=== PATIENT | female | born 1985 | race Caucasian/White ===

== ENCOUNTER 2021-05-17 23:31 | Inpatient (IN) ==
[2021-05-18] MEDS ORDERED: OXYTOCIN 30 UNITS/500 ML BAG IV PRN ×2 (02:20→10:14)
[2021-05-18] MEDS: LACTATED RINGER'S 1,000 ML IV PRN ×2 (02:30→04:16)
[2021-05-18] MEDS ORDERED: ePHEDrine sulfate 50 MG/ML AMP ONE (02:31)
[2021-05-18] MEDS ORDERED: SODIUM CHLORIDE 0.9% INJ 10 ML VIAL ONE (02:31)
[2021-05-18] MEDS ORDERED: BUPIVACAINE 0.25% 30 ML VIAL ONE (02:32)
[2021-05-18] MEDS ORDERED: fentaNYL citrate 100 MCG/2 ML VIAL ONE (02:32)
[2021-05-18] MEDS ORDERED: fentaNYL 2MCG/ML ROPIVACAINE 1.25MG/ML 100 ML BAG EPI ONE (02:32)
[2021-05-18 02:51] LABS: Hematocrit (blood only) 34.9 % (37-47); Hemoglobin 11.9 g/dL (12.0-16.0); Mean Corpuscular Hemoglobin 30.8 pg (25-34); Mean Corpuscular Hgb Conc 34.1 g/dL (32-36); Mean Corpuscular Volume 90.4 fL (80-100); Mean Platelet Volume 11.3 fL (7.4-10.4); Platelet Count 256 K/uL (130-400); RDW Standard Deviation 45.9 fL (36.4-46.3); Red Blood Count 3.86 M/uL (4.2-5.4); White Blood Count 16.97 K/uL (4.8-10.8)
--- NOTE | 2021-05-18 02:56 | Anesthesiology Consultation ---
Date of Service May 18, 2021 Assessment & Plan (1) Encounter for pre-operative examination: Chart Review Chart Review: Acceptable Risk for Surgery and Patient NOT seen in Pre Admission Testing Consults Requested none ASA ASA2 Proposed Anesthesia Anesthesia Type: Labor Epidural Risk / Benefits Reviewed With: PT / POA / Parent / Guardian, Accepts Plan and Informed Consent Obtained History Height/Weight Height: 5 ft 1 in Weight: 86.183 kg Allergies Allergy/AdvReac Type Severity Reaction Status Date / Time No Known Allergies Allergy Verified 05/17/21 23:59 Medications Home Medications Medication Instructions Recorded Confirmed Last Taken levothyroxine 50 mcg tablet 50 mcg PO DAILY 05/18/21 05/18/21 05/17/21 08:00 vits no.124-ferrous fum 1 tab PO DAILY 05/18/21 05/18/21 05/17/21 08:00 27 mg iron-folic acid 800 mcg tablet ( Vitamin) Active Medications Generic Name Dose Route Start Last Admin Trade Name Freq PRN Reason Stop Dose Admin Lactated Ringer's 1,000 mls @ 125 mls/hr 05/18/21 02:20 05/18/21 02:30 Lr IV 05/20/21 02:19 999 mls/hr .Q8H PRN Administration L&D Protocol Protocol NPO Date Last Intake of Fluids: 05/18/21 Time Last Intake of Fluids: 02:53 Date Last Intake of Solids: 05/18/21 Time Last Intake of Solids: 02:53 Past Medical History Medical History 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 Patient denies history of abnormal bleeding or bleeding disorder. Patient denies active use of anticoagulants other than low dose aspirin. Patient denies numbness, tingling or weakness in lower extremities. Physical Exam Vital Signs Last Vital Signs Temp 36.7 C 05/17/21 23:44 Pulse 71 05/17/21 23:44 Resp 18 05/17/21 23:44 BP 132/75 05/17/21 23:44 Constitutional not obese (gravid) ENMT Mouth: no TMJ abnormality and oral opening not small Thyromental Distance: > or= 3.5 Finger Breadths Mallampati Class: II Neck normal visual inspection; neck extension not limited Respiratory normal respiratory effort Cardiovascular Rate/Rhythm: regular rate and regular rhythm Neurologic moves all extremities Psychiatric Orientation: alert and oriented x 3 Testing Laboratory Results 05/18/21 02:33
[2021-05-18] MEDS ORDERED: diphenhydrAMINE 50 MG/ML VIAL IV PRN (04:14)
[2021-05-18] MEDS ORDERED: NALOXONE HCL 1 MG in SODIUM CHLORIDE 0.9% 1000ML 1,000 ML IV PRN (04:14)
[2021-05-18] MEDS ORDERED: ePHEDrine sulfate 50 MG/ML AMP IV PRN (04:14)
[2021-05-18] MEDS ORDERED: fentaNYL 2MCG/ML ROPIVACAINE 1.25MG/ML 100 ML BAG EPI PRN (04:14)
[2021-05-18] MEDS ORDERED: ONDANSETRON INJ 2 MG/ML 2 ML VIAL IV PRN (04:14)
[2021-05-18] MEDS ORDERED: NALOXONE HCL 0.4 MG/1 ML VIAL/CARP IV PRN (04:14)
[2021-05-18] MEDS ORDERED: NALBUPHINE HCL INJ 10 MG/ML AMP IV PRN (04:14)
--- NOTE | 2021-05-18 06:21 | Progress Note ---
Date of Service May 18, 2021 Assessment & Plan Admission and Anticipated Discharge Date Admission Date: May 18, 2021 Subjective Pt doing well FHR; CAT1 Ctx 1-3min VE;10/100/-0 station No urge to push Will startte pushing when pt has urge Results & Data ([facility]) Vital Signs (Past 12 Hours) Vital Signs Temp Pulse Resp BP Pulse Ox 05/18/21 06:13 89 100 05/18/21 06:08 99 H 100 05/18/21 06:07 92 H 123/71 05/18/21 06:03 74 97 05/18/21 05:58 89 97 05/18/21 05:53 80 97 05/18/21 05:51 77 120/70 05/18/21 05:48 86 97 05/18/21 05:43 61 96 05/18/21 05:38 60 96 05/18/21 05:36 85 105/62 05/18/21 05:33 62 96 05/18/21 05:30 18 05/18/21 05:28 60 96 05/18/21 05:23 62 96 05/18/21 05:21 63 103/60 05/18/21 05:18 62 96 05/18/21 05:13 67 96 05/18/21 05:08 70 96 05/18/21 05:06 64 106/62 05/18/21 05:03 69 97 05/18/21 05:00 18 05/18/21 04:58 75 100 05/18/21 04:53 73 98 05/18/21 04:48 73 117/64 100 05/18/21 04:44 71 114/64 05/18/21 04:43 71 100 05/18/21 04:38 72 116/63 98 05/18/21 04:34 87 84 L 05/18/21 04:33 85 92 05/18/21 04:30 18 05/18/21 04:28 90 99 05/18/21 04:27 93 H 115/71 05/18/21 04:23 94 H 119/80 100 05/18/21 04:20 18 05/18/21 04:18 94 H 98 05/18/21 04:17 97 H 107/68 05/18/21 04:15 102 H 18 105/67 05/18/21 04:13 93 H 100/60 98 05/18/21 04:11 86 102/57 L 05/18/21 04:10 18 05/18/21 04:08 89 98 05/18/21 04:07 36.7 C 88 135/78 05/18/21 04:05 97 H 18 149/85 H 05/18/21 04:03 89 152/95 H 98 05/18/21 04:01 85 147/82 H 05/18/21 04:00 18 05/18/21 03:59 96 H 155/88 H 05/18/21 03:58 87 99 05/18/21 03:57 82 152/84 H 05/18/21 03:54 78 145/69 H 05/18/21 03:53 84 195/89 H 97 05/18/21 03:48 81 98 05/18/21 03:44 75 90 05/18/21 03:43 73 141/78 H 99 05/17/21 23:44 36.7 C 71 18 132/75 05/17/21 23:42 36.7 C 71 18 132/75
[2021-05-18] MEDS ORDERED: CALCIUM CARBONATE 500 MG CHEWABLE TAB PO PRN (06:39)
[2021-05-18] MEDS ORDERED: HYDROCORTISONE ACETATE 25 MG SUPP PR PRN (10:14)
[2021-05-18] MEDS ORDERED: DIPHTHERIA/TETANUS/PERTUSSIS 0.5 ML SYR/VIAL IM ONE (10:14)
[2021-05-18] MEDS ORDERED: ACETAMINOPHEN 325 MG TAB PO PRN (10:14)
[2021-05-18] MEDS ORDERED: SUPERCREAM 0.870% 15 GM JAR EXT PRN (10:14)
[2021-05-18] MEDS ORDERED: BENZOCAINE 20% AER SPR 82.5 GM CAN EXT PRN (10:14)
--- NOTE | 2021-05-18 10:15 | Delivery Summary ---
Vaginal Delivery Summary Date of Service May 18, 2021 Vaginal Delivery Summary Delivery Note live male TERE over intact perineum with loose cord x1 reduced at delivery of head with delayed cord clamping and Apgars 8/9 weight pending. Cord blood obtained followed by spontaneous delivery of intact placenta. First degree tear repaired with 3/0 Vicryl suture. EBL 100 ml. Final sponge, needle and instrument count are correct. Mom and baby stable.
--- NOTE | 2021-05-18 10:23 | Anesthesia Procedure Note ---
Date of Service May 18, 2021 Anesthesia Post Epidural Note Vital Signs Vital Signs: Temp Pulse Resp BP Pulse Ox 36.6 C 103 H 20 120/75 99 05/18/21 07:10 05/18/21 09:44 05/18/21 07:10 05/18/21 09:37 05/18/21 09:44 Notes Mental Status: alert / awake / arousable and participated in evaluation Nausea / Vomiting: adequately controlled Pain: adequately controlled Airway Patency, RR, SpO2: stable & adequate BP & HR: stable & adequate Hydration State: stable & adequate Neuraxial Anesthesia: was administered and sensory block is resolving Anesthetic Complications: no major complications apparent and Pt Satisfied with anesthetic care Epidural: Removed without complications and With tip intact
[2021-05-18] MEDS: LEVOTHYROXINE SODIUM 50 MCG TABLET PO SCH (11:09)
[2021-05-18] MEDS: IBUPROFEN 600 MG TAB PO PRN ×3 (12:45→21:11)
[2021-05-18] MEDS: DOCUSATE SODIUM 100 MG CAP PO SCH (21:11)
[2021-05-19] MEDS: IBUPROFEN 600 MG TAB PO PRN ×6 (01:44→23:46)
[2021-05-19] MEDS: LEVOTHYROXINE SODIUM 50 MCG TABLET PO SCH (06:25)
[2021-05-19 07:04] LABS: Hematocrit (blood only) 30.2 % (37-47); Hemoglobin 10.1 g/dL (12.0-16.0); Mean Corpuscular Hemoglobin 30.6 pg (25-34); Mean Corpuscular Hgb Conc 33.4 g/dL (32-36); Mean Corpuscular Volume 91.5 fL (80-100); Platelet Count 228 K/uL (130-400); RDW Coefficient of Variation 14.6 % (11.5-14.5); RDW Standard Deviation 48.8 fL (36.4-46.3); White Blood Count 19.08 K/uL (4.8-10.8)
[2021-05-19] MEDS ORDERED: PRENATAL VITAMIN 1 TAB PO SCH (08:00)
--- NOTE | 2021-05-19 08:05 | Obstetrical Progress Note ---
Date of Service May 19, 2021 Assessment & Plan Admission and Anticipated Discharge Date Admission Date: May 18, 2021 Subjective Patient is seen and examined. She feels well, no complaints. Ambulating without dizziness Voiding without difficulty Tolerating regular diet with out N&V Bleeding is minimal No fever/ chills/ CP/ SOB/ N&V/ Leg pain Breast feeding without problems Vital Signs Temp Pulse Resp BP Pulse Ox 05/19/21 04:35 36.8 C 73 20 116/78 99 05/19/21 00:35 36.6 C 77 20 114/74 98 Vital Signs Temp Pulse Pulse Resp BP BP Pulse Ox 05/19/21 04:35 36.8 C 73 20 116/78 99 05/19/21 00:35 36.6 C 77 20 114/74 98 05/18/21 20:05 36.9 C 98 H 18 125/72 98 05/18/21 12:40 36.8 C 99 H 16 132/80 98 05/18/21 11:50 104 H 126/67 05/18/21 11:35 103 H 124/65 05/18/21 11:21 105 H 132/74 05/18/21 11:06 104 H 144/102 H 05/18/21 10:36 98 H 124/70 05/18/21 09:44 103 H 99 05/18/21 09:39 128 H 99 05/18/21 09:37 107 H 120/75 05/18/21 09:34 104 H 99 05/18/21 09:29 99 H 99 05/18/21 09:24 91 H 99 05/18/21 09:21 100 H 142/64 H 05/18/21 09:19 126 H 97 05/18/21 09:14 109 H 99 05/18/21 09:09 95 H 99 05/18/21 09:04 100 H 99 05/18/21 08:59 123 H 100 05/18/21 08:54 117 H 99 05/18/21 08:52 114 H 127/79 05/18/21 08:49 124 H 99 05/18/21 08:44 109 H 96 05/18/21 08:39 113 H 96 05/18/21 08:36 122 H 131/82 05/18/21 08:34 105 H 99 05/18/21 08:29 94 H 97 05/18/21 08:24 90 97 05/18/21 08:21 85 114/73 05/18/21 08:19 87 97 05/18/21 08:14 93 H 99 05/18/21 08:09 84 96 05/18/21 08:07 86 112/74 Lab Results 05/18/21 05/18/21 05/18/21 Range/Units 02:22 02:22 02:33 WBC 16.97 H (4.8-10.8) K/uL RBC 3.86 L (4.2-5.4) M/uL Hgb 11.9 L (12.0-16.0) g/dL Hct 34.9 L (37-47) % MCV 90.4 (80-100) fL MCH 30.8 (25-34) pg MCHC 34.1 (32-36) g/dL RDW Std Deviation 45.9 (36.4-46.3) fL RDW Coeff of [place] 14.0 (11.5-14.5) % Plt Count 256 (130-400) K/uL MPV 11.3 H (7.4-10.4) fL COVID-19 Eval [facility] SARS-CoV-2, RNA, NAAT NEGATIVE (NEGATIVE) 05/19/21 Range/Units 06:24 WBC 19.08 H (4.8-10.8) K/uL RBC 3.30 L (4.2-5.4) M/uL Hgb 10.1 L (12.0-16.0) g/dL Hct 30.2 L (37-47) % MCV 91.5 (80-100) fL MCH 30.6 (25-34) pg MCHC 33.4 (32-36) g/dL RDW Std Deviation 48.8 H (36.4-46.3) fL RDW Coeff of [place] 14.6 H (11.5-14.5) % Plt Count 228 (130-400) K/uL MPV 11.0 H (7.4-10.4) fL COVID-19 Eval Order SARS-CoV-2, RNA, NAAT (NEGATIVE) PE: General: Alert, orientedx3, NAD Abd: soft, NT, fundus firm, below Umbilicus Perineum intact, Lochia rubra minimal Ext; NT, no edema AP: 36 yo s/p , ppd# 1 VSS Afebrile doing well WBCC elevated, afebrile, recheck in am Continue routine care All questions were answered D/C home tomorrow Results & Data ([facility]) Vital Signs (Past 12 Hours) Vital Signs Temp Pulse Resp BP Pulse Ox 05/19/21 04:35 36.8 C 73 20 116/78 99 05/19/21 00:35 36.6 C 77 20 114/74 98 05/18/21 20:05 36.9 C 98 H 18 125/72 98
[2021-05-19] MEDS: PRENATAL VITAMIN 1 TAB PO SCH (08:50)
[2021-05-19] MEDS: DOCUSATE SODIUM 100 MG CAP PO SCH ×2 (08:50→20:22)
[2021-05-19] MEDS: FERROUS SULFATE 325 MG TAB PO SCH (08:50)
[2021-05-19] MEDS ORDERED: bisacodyL 5 MG TABEC PO SCH (20:00)
[2021-05-20] MEDS: IBUPROFEN 600 MG TAB PO PRN ×2 (04:51→08:57)
[2021-05-20] MEDS ORDERED: bisacodyL 10 MG SUPP PR PRN (06:00)
[2021-05-20] MEDS: LEVOTHYROXINE SODIUM 50 MCG TABLET PO SCH (06:26)
[2021-05-20 06:38] LABS: Basophils # (auto) 0.07 K/uL (0-0.2); Basophils % (auto) 0.5 %; Eosinophils # (auto) 0.27 K/uL (0-0.5); Eosinophils % (auto) 1.9 %; Hematocrit (blood only) 30.9 % (37-47); Hemoglobin 10.3 g/dL (12.0-16.0); Immature Granulocytes # (auto) 0.08 K/uL (0.00-0.02); Immature Granulocytes % (auto) 0.6 %; Lymphocytes # (auto) 4.16 K/uL (1.2-3.4); Lymphocytes % (auto) 29.2 %; Mean Corpuscular Hemoglobin 30.8 pg (25-34); Mean Corpuscular Hgb Conc 33.3 g/dL (32-36); Mean Corpuscular Volume 92.5 fL (80-100); Mean Platelet Volume 10.9 fL (7.4-10.4); Monocytes # (auto) 1.01 K/uL (0.11-0.59); Monocytes % (auto) 7.1 %; Neutrophils # (auto) 8.68 K/uL (1.4-6.5); Neutrophils % (auto) 60.7 %; Platelet Count 260 K/uL (130-400); RDW Coefficient of Variation 14.6 % (11.5-14.5); RDW Standard Deviation 48.9 fL (36.4-46.3); Red Blood Count 3.34 M/uL (4.2-5.4); White Blood Count 14.27 K/uL (4.8-10.8)
--- NOTE | 2021-05-20 07:56 | Obstetrical Progress Note ---
Date of Service May 20, 2021 Assessment & Plan Admission and Anticipated Discharge Date Admission Date: May 18, 2021 Subjective abdomen soft and non tender ambulating well no calf tenderness vaginal bleeding scant hgb 10.3 Results & Data ([facility]) Vital Signs (Past 12 Hours) Vital Signs Temp Pulse Resp BP BP Pulse Ox 05/19/21 23:25 36.7 C 95 H 16 117/75 117/75 97 05/19/21 20:30 36.7 C 91 H 16 123/71 98
[2021-05-20] MEDS: PRENATAL VITAMIN 1 TAB PO SCH (08:57)
[2021-05-20] MEDS: FERROUS SULFATE 325 MG TAB PO SCH (08:57)
[2021-05-20] MEDS: DOCUSATE SODIUM 100 MG CAP PO SCH (08:57)
== END 2021-05-20 12:05 | disposition home or self-care (01) | DRG 807 ==
LOC: OPB 23:31 → 4S1 23:33 → 4S2 05-18 12:30